=== PATIENT | male | born 1950 | race Caucasian/White ===

== ENCOUNTER 2023-09-10 12:36 | Outpatient (OUT) | payer MEDICARE, OTHER, SELFPAY ==
--- NOTE | 2023-09-10 13:46 | CA_ITS ---
Patient Name GABY GILL MR# Age Sex Date Time [id number] M 09/10/2023 13:02 At the Request Of MRS. RIRI LIZARRAGA NP ECHOCARDIOGRAM REPORT PROCEDURE: CA ECHO DOPPLER COMPLETE INDICATIONS: Chronic systolic heart failure COMPARISON: None. DESCRIPTION: COMPLETE ECHOCARDIOGRAM Real-time transthoracic echocardiography with 2D, M-mode, spectral and color flow Doppler performed. QUALITY: Technical quality was good. LEFT VENTRICLE: Normal chamber size. Thickened septal wall. LV EF: Global left ventricular systolic function is hyperdynamic. Visual estimation of left ventricular ejection fraction is 65 to 70%. No wall motion abnormalities. DIASTOLIC: Normal diastolic function. ATRIAL SEPTUM: Inadequately seen. LEFT ATRIUM: Normal chamber size. RIGHT ATRIUM: Normal chamber size. RIGHT VENTRICLE: Normal chamber size. Normal right ventricular systolic function. TRICUSPID VALVE: Normal mobility and thickness. No stenosis with trivial regurgitation. No evidence of pulmonary hypertension. RVSP 28mmHg MITRAL VALVE: Normal mobility and thickness. No evidence of mitral valve stenosis. Mitral annular calcification. Trivial mitral regurgitation. AORTIC VALVE: Normal trileaflet appearance. No visible sclerosis. Normal leaflet mobility. No evidence of aortic valve stenosis. No aortic regurgitation. AORTIC ROOT: Normal diameter and appearance. PULMONIC VALVE: Normal thickness and mobility. No stenosis. Trivial regurgitation. PERICARDIUM: No evidence of pericardial effusion. IVC: Collapses with inspirations. Normal size CONCLUSION: 1. Global left ventricular systolic function is hyperdynamic; visually estimated ejection fraction 65 to 70% 2. The right ventricle is normal in size and systolic function 3. Normal diastolic function 4. No significant valvular abnormalities Adult Echocardiography Procedure Report Left Ventricle LVEDD (3.7 - 5.6 cm): 4.16 cm LVESD (2.2 - 4.0 cm): 2.93 cm LVIVS thickness (0.6 - 1.2 cm): 1.35 cm LVPW thickness (0.5 - 1.0 cm): 0.99 cm e': 0.08 m/s E - e': 6.85 LVOT Max Gradient: 2.54 mm[Hg] LVOT Area (cm2): 0.80 m/s Peak Velocity (LVOT): 0.80 m/s Mean Velocity (LVOT): 0.53 m/s LVOT Diameter 1.97 cm Left Ventricular Ejection Fraction: 68.89 % Left Atrium LA Volume Index (2D A2C): 22.65 ml/m2 Left Atrium Systolic Dimension: 2.92 cm Mitral Valve MV E to A Ratio: 0.71 Mitral Valve A-Wave Peak Velocity: 0.77 m/s Mitral Valve E-Wave Peak Velocity: 0.55 m/s Right Ventricle RV Internal Diastolic Dimension: 2.93 cm Aorta AO Root Diam: 3.17 cm Ascending Ao Diam: 2.81 cm Aortic Valve AoV Area (Peak Ge): 2.69 cm2, 2.69 cm2 AoV Area (VTI): 2.82 cm2, 2.82 cm2 Peak Velocity(Antegrade Flow): 0.90 m/s Peak Gradient(Antegrade Flow): 3.26 mm[Hg] Mean Velocity(Antegrade Flow): 0.58 m/s Mean Gradient(Antegrade Flow): 1.53 mm[Hg] Velocity Time Integral: 20.16 cm Tricuspid Valve Peak Velocity (Regurgitant Flow): 2.21 m/s, 2.26 m/s, 2.49 m/s Pulmonic Valve Mean Gradient: 1.51 mm[Hg], 1.75 mm[Hg] Mean Velocity: 0.58 m/s, 0.63 m/s Peak Velocity: 0.86 m/s Peak Gradient: 2.66 mm[Hg], 3.21 mm[Hg] Right Atrium Right Atrium Systolic Pressure: 21.18 ml, 21.18 ml Dictated by: Ben White M.D. on 09/12/2023 at 12:16 Approved by: Ben White M.D. on 09/12/2023 at 12:18
== END 2023-09-10 12:37 | disposition home or self-care (01) ==
LOC: CARD 12:36
PROVIDERS: PCP Nurse Practitioner Acute Care; Visit Provider Nurse Practitioner Acute Care
DX: I50.22 Chronic systolic (congestive) heart failure (principal)
CPT/HCPCS: 93306; 93356